=== PATIENT | male | born 1995 | race Caucasian/White ===

== ENCOUNTER → 2024-09-29 | Outpatient (CLI) | payer BC, SELFPAY ==
--- NOTE | 2024-09-29 12:46 | RAD_ITS ---
STUDY: X-RAY - PELVIS AND LEFT HIP REASON FOR EXAM: Male, 29 years old. Left hip pain. TECHNIQUE: 4 views of the pelvis and left hip. COMPARISON: None. FINDINGS: There is a non-specific bowel gas pattern. Normal visualized soft tissue structures. Normal bilateral iliac wings, sacroiliac joints and visualized sacrum. Normal bilateral superior and inferior pubic rami. Normal pubic symphysis. Normal bilateral ischial tuberosities. Normal visualized femoral head. Normal acetabulum. Normal hip joint. No demonstrated acute fracture. RAD/HIP, UNI W/ Pelvis 2-3 Views IMPRESSION: Normal x-ray examination of the pelvis and left hip. Electronically Signed: Randell Ellis MD at 15:16 EST ,
== END | disposition home or self-care (01) ==
LOC: MTRAD 12:43
PROVIDERS: PCP Family Medicine
DX: M25.552 Pain in left hip (principal)
CPT/HCPCS: 73502

== ENCOUNTER → 2024-10-27 | Outpatient (CLI) | payer BC, SELFPAY ==
[2024-10-27 15:45] LABS: Bacteria 0 SEEN /hpf (None Seen); Squamous Epithelial Cells - UA 0 SEEN /hpf (0-5)
[2024-10-27 17:37] LABS: Absolute Lymphocyte Count 2.14 X10^3/uL (0.83-4.51); Absolute Neutrophil Count 9.9 X10^3/uL (2.0-7.7); Basophil# 0.07 X10^3/uL; Basophil% 0.5 % (0-1); Eosinophil# 0.15 X10^3/uL; Eosinophils% 1.1 % (0-5); Hematocrit 42.5 % (40-54); Hemoglobin 13.8 g/dL (13.0-16.5); Lymphocyte # 2.14 X10^3/ul (0.83-4.51); Lymphocyte % 16.2 % (19-41); Mean Corp Hgb Conc 32.5 g/dL (32-36); Mean Corpuscular Hgb 28.7 pg (27.0-32.0); Mean Corpuscular Volume 88.4 fL (80-94); Mean Platelet Vol. 10.5 fl (6.2-12.0); Monocyte# 0.87 X10^3/uL; Monocyte% 6.6 % (0-10); NRBC Flagged by Analyzer 0 % (0-5); Neutrophil % 74.8 % (47-70); Platelet Count 261 K/mm3 (150-450); RBC Distribution Width CV 12.9 % (11.6-14.6); RBC Distribution Width SD 41.3 fl (35.1-43.9); Red Blood Count 4.81 M/mm3 (4.6-6.2); White Blood Count 13.2 K/mm3 (4.4-11.0)
[2024-10-27 18:38] LABS: Color, Urine Yellow (Yellow); Glucose, Dipstick Normal (Normal); Ketone-Dipstick 15 mg/dl (Negative); Leukocyte Esterase-Dipstick 25 /ul (Negative); Nitrite-Dipstick Negative (Negative); Occult Blood-Urine 10 /ul (Negative); Protein-Dipstick 30 mg/dl (Negative); Specific Gravity, Urine 1.015 (1.002-1.030); Urine Bilirubin Dipstick Negative (Negative); Urine Clarity Clear (Clear); Urine Urobilinogen Normal (Normal)
[2024-10-27 18:49] LABS: Vitamin B12 518 pg/mL (211-911); Vitamin D,25 Hydroxy 17.5 ng/mL
[2024-10-27 19:11] LABS: Hemoglobin A1c 5.1 % (3.8-5.6)
[2024-10-27 19:24] LABS: Red Blood Cells-Urine 5-10 SEEN /hpf (0-5)
[2024-10-27 19:25] LABS: Hyaline Cast 0-5 SEEN /lpf (0-5); Mucous, Urine 1+ /hpf (<or=2+)
[2024-10-27 19:29] LABS: White Blood Cells 5-10 SEEN /hpf (0-5)
[2024-10-28 07:41] LABS: ALB/GLOB Ratio 1.2 RATIO (0.9-2.4); AST(SGOT) 18 U/L (15-37); Alanine Aminotransfer ALT/SGPT 39 U/L (16-61); Albumin, Serum 4.5 g/dL (3.2-5.0); Alkaline Phosphatase 91 U/L (45-117); Anion Gap 11 (5-15); BUN 12 mg/dL (7-18); BUN/Creat Ratio 12.3 RATIO (10-20); Calcium,Total 10.1 mg/dL (8.5-10.1); Chloride 105 mmol/L (98-107); Cholesterol 165 mg/dL (200); Creatinine, Serum 0.97 mg/dL (0.70-1.30); EST Glomerular Filtration Rate 98 mL/min (>60); Est Glom Filt Rate - Afr Amer 119 mL/min (>60); Globulin 3.9 g/dL (2.2-4.2); Glucose 66 mg/dL (74-106); High Density Lipoprotein 48 mg/dL; Protein, Total 8.4 g/dL (6.4-8.2); Sodium Level 141 mmol/L (136-145); Thyroid Stim Hormone (TSH) 0.889 uIU/mL (0.358-3.740); Triglycerides 90 mg/dL; Very Low Density Lipoprotein 18 mg/dL (5-40)
== END | disposition home or self-care (01) ==
LOC: MFPLAB 15:43
PROVIDERS: PCP Family Medicine; Referring Provider Family Medicine; Visit Provider Family Medicine
DX: E66.01 Morbid (severe) obesity due to excess calories (principal); R53.83 Other fatigue; F17.200 Nicotine dependence, unspecified, uncomplicated

== ENCOUNTER 2024-10-28 15:30 | Outpatient (RCR) | payer BC, SELFPAY ==
--- NOTE | 2024-10-15 08:00 | HP.PTEVAL ---
Patient's Visit Information Visit Information Visit Information: GOKUL TANNER is a 29 year old M referred to Physical Therapy by TETE Paredes with a diagnosis of L hip pain. Date of Evaluation: 10/15/24 Physical Therapist: Deacon Palmer, PT, ATC Visit Plan Frequency: 2x /Week Duration: 4-6 Weeks Plan: L hip flexor/ITband/HS stretching, L hip strengthening, core strengthening ex's, and HEP Subjective Subjective: Pt reports his L hip has been sore for approximately one month. Pt notes he has a really big step to get into his truck, and believes that may be part of the cause. Pt reports his L knee has started hurting now because of how he walks secondary to his L hip pain. Pt denies any prior L hip pain. Pt reports the truck with the big step on it is a work truck. He works for [employer]ing. Pt reports most of his pain is on the anterior aspect of his L hip. Pt also notes pain on the lateral aspect of L hip that extends to his knee. Pt denies tingling or numbness in LE's. Pt denies LBP at this time. Pt reports difficulty with falling asleep at times secondary to pain. Pt notes he had xrays but did not receive the results from that test yet. Pt reports he has stairs at home that he has to negotiate sideways secondary to pain. 2/10 pain while sitting here at rest, 10/10 pain at worst (when he bends over forward and his hip almost james on him) Pain L hip: Pain Intensity (Out of 10): 2 Pain Intensity Range: 10 Objective Objective: Neuro: B LE sensation is WNL to light touch ROM: R hip flex= 85, abd= 55, ext= 0 degrees; L hip flex= 65, abd= 45, ext= 0 degrees MMT: R hip flex= 31, abd= 45, add= 48 #F; L hip flex= 24, abd= 45, add= 48 #F TU seconds Special tests: Pos 90/90 (45 degree lag), hip flexor and IT band tests. No other positive tests Balance/Special Test Scores Lower Extremity Functional Score: 38 Goals Goal 1:: Decrease L hip pain x 50% to aid with sleep Goal Time Frame: 4-6 Weeks Goal 2:: Increase L hip flexion strength x 10#F to aid with stair negotiation Goal Time Frame: 4-6 Weeks Goal 3:: I with HEP Goal Time Frame: 4-6 Weeks Rehabilitation Potential Physical Therapy Diagnosis: Pt has L hip pain, weakness, and limited ROM secondary to L hip tendinopathy Rehabilitation Potential: Good Anticipated Interventions Patient/Client Instruction: Educate patient on: Condition and Plan of Care For the Purpose of:: To improve self management Therapeutic Exercise to Include: Strength training, Endurance training, Flexibilty training and Dynamic Lumbar Stabilization For the Purpose of:: To decrease pain, To increase ROM and To improve muscle performance and motor function Text: Thank you for the opportunity to evaluate your patient. For Medicare and Medicare HMO plans, please review the plan of care and approve it. It will need to be FAXED BACK to us at [phone] for Medicare purposes. For Medicare only, by signing this I certify the plan of care. Please let me know if there are questions or concerns regarding this plan of care. Physician Signature: Date:
--- NOTE | 2024-12-28 08:42 | HP.PT.NRP ---
Patient Information Patient Information: GOKUL TANNER was seen in my office for initial evaluation on 10/15/24. The following Plan of Care was established for this patient: POC Established Initial Frequency: 2x /Week Initial Duration: 4-6 Weeks Anticipated Interventions Patient/Client Instruction: Educate patient on: Condition and Plan of Care For the Purpose of:: To improve self management Therapeutic Exercise to Include: Strength training, Endurance training, Flexibilty training and Dynamic Lumbar Stabilization For the Purpose of:: To decrease pain, To increase ROM and To improve muscle performance and motor function Last Seen Last Seen: This patient was last seen in our office . Pertinent comments regarding their Physical therapy will appear below: Pt has not returned for greater than 30 days and is discontinued at this time. At this point I will be discontinuing this patient from physical therapy. I would be happy to see this patient again in the future if found appropriate by the physician. Thank you! Deacon Palmer, PT, ATC Balance/Gait/Functional tests Balance/Special Test Scores Lower Extremity Functional Score: 38
== END 2024-10-28 19:00 | disposition home or self-care (01) ==
LOC: PT 15:30
PROVIDERS: PCP Family Medicine; Referring Provider Nurse Practitioner Family; Visit Provider Nurse Practitioner Family
DX: M25.552 Pain in left hip (principal)
CPT/HCPCS: 97014; 97110; 97161; G0283